=== PATIENT | female | born 1990 | race Caucasian/White ===

== ENCOUNTER 2017-05-12 11:26 | Inpatient (IN) | payer BC ==
[2017-05-12] MEDS ORDERED: OXYTOCIN 30 UNITS/LR 500 ML IV ×2 (13:00)
[2017-05-12] MEDS ORDERED: MISOPROSTOL 200 MCG TAB PR (13:00)
[2017-05-12] MEDS ORDERED: METHYLERGONOVINE 0.2 MG INJ IM (13:00)
[2017-05-12] MEDS ORDERED: CARBOPROST 250 MCG INJ IM (13:00)
[2017-05-12] MEDS: MINERAL OIL LIGHT 10 ML VIAL TOP ×2 (13:00→22:00)
[2017-05-12] MEDS: AMPICILLIN 2 GM/NS (PMX) 100 ML IV (13:34)
[2017-05-12] MEDS: LACTATED RINGER'S 1,000 ML IV (13:34)
[2017-05-12 13:50] LABS: ADD MAN DIFF? NO
[2017-05-12 13:55] LABS: WHITE BLOOD COUNT 7.9 10^3/ul (4.8-10.8)
[2017-05-12 13:55] LABS: BASOPHILS % 0.1 % (0.0-2.0); EOSINOPHILS # 0.1 10^3/ul (0.0-0.5); EOSINOPHILS % 0.9 % (0.0-7.0); HEMOGLOBIN 11.6 g/dl (12.0-16.0); LYMPHOCYTES # 1.2 10^3/ul (0.8-2.9); LYMPHOCYTES % 15.2 % (15.0-51.0); MEAN CORPUSCULAR HEMOGLOBIN 27.1 pg (29.0-33.0); MEAN CORPUSCULAR HGB CONC 33.1 g/dl (32.0-37.0); MEAN CORPUSCULAR VOLUME 81.8 fl (82.0-101.0); MEAN PLATELET VOLUME 11.3 fl (7.4-10.4); MONOCYTE # 0.5 10^3/ul (0.3-0.9); MONOCYTES % 6.9 % (0.0-11.0); NEUTROPHILS % 76.3 % (39.0-77.0); PLATELET COUNT 210 10^3/UL (140-415); RED BLOOD COUNT 4.28 10^6/ul (4.20-5.40); RED CELL DISTRIBUTION WIDTH 14.8 % (11.5-14.5)
[2017-05-12 14:20] LABS: INR 0.93; PROTIME 12.5 Sec (11.9-14.9)
[2017-05-12 14:21] LABS: PARTIAL THROMBOPLASTIN TIME 27.6 Sec (25.0-35.0)
[2017-05-12 14:43] LABS: HEPATITIS B SURFACE ANTIGEN NEGATIVE (NEGATIVE)
[2017-05-12] MEDS: AMPICILLIN 1 GM/NS (PMX) 50 ML IV ×2 (17:30→21:51)
[2017-05-12] MEDS: BUTORPHANOL 2 MG INJ IV (19:33)
[2017-05-12 22:41] LABS: RAPID PLASMA REAGIN NONREACTIVE (NR)
[2017-05-12] MEDS: OXYTOCIN 30 UNITS/LR 500 ML IV ×2 (22:59→23:01)
[2017-05-12] MEDS: IBUPROFEN 600 MG TAB PO (23:46)
[2017-05-13] MEDS: LIDOCAINE 1% (MPF) 30 ML INJ INJ (01:14)
[2017-05-13] MEDS ORDERED: ACETAMINOPHEN 325 MG TAB PO (02:00)
[2017-05-13] MEDS ORDERED: ONDANSETRON 4 MG INJ IV (02:00)
[2017-05-13] MEDS ORDERED: OXYCODONE/ASPIRIN (4.88/325) TAB PO ×2 (02:00)
[2017-05-13] MEDS: HYDROCODONE/APAP (5/325) TAB PO ×3 (02:07→15:33)
[2017-05-13] MEDS: OXYTOCIN 30 UNITS/LR 500 ML IV (03:25)
[2017-05-13] MEDS: WITCH HAZEL/GLYCERIN PAD PR (04:14)
[2017-05-13] MEDS: BENZOCAINE 20% 56 ML SPRAY TOP (04:14)
[2017-05-13] MEDS: LANOLIN 7 GM TUBE TOP (04:15)
[2017-05-13] MEDS: IBUPROFEN 600 MG TAB PO ×3 (05:36→17:59)
[2017-05-13] MEDS: SENNA/DOCUSATE NA (8.6MG/50MG) TAB PO ×2 (08:35→22:00)
[2017-05-13] MEDS: DIBUCAINE 1% 30 GM OINT TOP (10:15)
[2017-05-13 10:49] LABS: ADD MAN DIFF? NO
[2017-05-13 10:53] LABS: BASOPHILS % 0.2 % (0.0-2.0); EOSINOPHILS % 0.2 % (0.0-7.0); HEMATOCRIT 31.1 % (37.0-47.0); HEMOGLOBIN 10.3 g/dl (12.0-16.0); LYMPHOCYTES # 1.4 10^3/ul (0.8-2.9); LYMPHOCYTES % 11.3 % (15.0-51.0); MEAN CORPUSCULAR HGB CONC 33.1 g/dl (32.0-37.0); MEAN CORPUSCULAR VOLUME 81.4 fl (82.0-101.0); MEAN PLATELET VOLUME 11.9 fl (7.4-10.4); MONOCYTE # 0.9 10^3/ul (0.3-0.9); MONOCYTES % 7.1 % (0.0-11.0); NEUTROPHIL # 9.9 10^3/ul (1.6-7.5); NEUTROPHILS % 80.9 % (39.0-77.0); PLATELET COUNT 214 10^3/UL (140-415); RED BLOOD COUNT 3.82 10^6/ul (4.20-5.40); RED CELL DISTRIBUTION WIDTH 14.9 % (11.5-14.5)
[2017-05-13 10:53] LABS: WHITE BLOOD COUNT 12.3 10^3/ul (4.8-10.8)
[2017-05-14] MEDS: IBUPROFEN 600 MG TAB PO ×3 (00:48→11:58)
[2017-05-14] MEDS: HYDROCODONE/APAP (5/325) TAB PO (04:08)
[2017-05-14] MEDS: MEASLES,MUMPS,RUBELLA VACCINE INJ SC* (07:50)
[2017-05-14] MEDS: SENNA/DOCUSATE NA (8.6MG/50MG) TAB PO (09:00)
== END 2017-05-14 16:05 | disposition home or self-care (01) | DRG 775 ==
LOC: OBT 11:26 → PP1 05-13 01:21 → L-D 11:27 → OBT 12:28 → L-D 12:39
PROVIDERS: Obstetrics & Gynecology
PROC: 10E0XZZ Delivery of Products of Conception, External Approach (ICD-10-PCS; principal; 2017-05-12)
PROC: 0HQ9XZZ Repair Perineum Skin, External Approach (ICD-10-PCS; 2017-05-12)
PROC: 4A1HXCZ Monitoring of Products of Conception, Cardiac Rate, External Approach (ICD-10-PCS; 2017-05-12)
DX: O70.0 First degree perineal laceration during delivery (principal); O69.81X0 Labor and delivery complicated by cord around neck, without compression, not applicable or unspecified; Z3A.38 38 weeks gestation of pregnancy; Z37.0 Single live birth
CPT/HCPCS: 76815; 85025; 85610; 85730; 86592; 86900; 86901; 87340